=== PATIENT | male | born 1995 | race Caucasian/White ===

== ENCOUNTER → 2020-05-02 13:14 | Outpatient (BNVA) | payer OTHER, SELFPAY | PROVIDERS: Visit Provider Nurse Practitioner Family | DX: Z11.59 Encounter for screening for other viral diseases (principal) | CPT/HCPCS: 87635 ==

== ENCOUNTER 2021-11-08 01:45 | Emergency (ER) | payer BC, SELFPAY ==
[2021-11-08 02:09] VITALS: BP 118/61; PULSE 96; RESP 18; TEMP 36.7; O2SAT 99; BMI 23.6
--- NOTE | 2021-11-08 02:34 | W.ED.NAVMDI ---
HPI - Nausea/Vomiting/Diarrhea General: Chief complaint: Nausea/Vomiting/Diarrhea Stated complaint: N/V/D Time Seen by Provider: 11/08/21 01:47 History of Present Illness: Patient is a 25-year-old male comes to the ED with nausea vomiting diarrhea. Symptoms started around 3:00 today. He states that he has had multiple episodes of watery diarrhea this evening along with severe nausea. He vomited once earlier today and then just vomited here in the ED. He says after he vomits his nausea is good for a little bit but then it comes back. He has not been able to eat anything since his symptoms started. Endorses having some abdominal cramping pain especially when he is having episodes of diarrhea. Denies any localized abdominal pain. Denies any fever, chills, upper respiratory symptoms or bladder symptoms. Denies any food poisoning or recent sick contacts. Associated nausea: Yes Associated symtoms: Reports nausea; Denies change in vision, chest pain, dysuria, fatigue, headache(s) or palpitations Review of Systems Const: Denies: fever(s), chills or fatigue Eyes: Denies: change in vision or eye discomfort ENMT: Denies: throat pain, odynophagia, nasal discharge or nasal congestion Card: Denies: chest pain, palpitations, edema, swelling of feet/ankles, dyspnea on exertion or orthopnea Resp: Denies: dyspnea, productive cough or non-productive cough GI: Reports: nausea, vomiting, diarrhea and GI cramping; Denies: abdominal pain, constipation or hematochezia : Denies: flank pain, difficulty urinating, dysuria or hematuria Musc: Denies: neck pain, back pain or extremity swelling Skin/Breast: Denies: rash or new lesions Neuro: Denies: headache(s), numbness in extremities or weakness in extremities PFS ED PFSH: Medical History No pertinent past medical history Family History Grandmother Diabetes Denies family history of Clotting disorder Dementia Social History Smoking and tobacco status: never smoked Alcohol intake: never Physical Exam Const: COMMON NORMALS: patient oriented x3 and alert GENERAL APPEARANCE: cooperative and comfortable HENMT: COMMON NORMALS: normocephalic HEAD & SCALP: normocephalic MOUTH: Normal oral and palatal mucosa present THROAT: posterior oropharynx normal and uvula midline Neck/C-Spine: COMMON NORMALS: supple GENERAL: Yes normal visual inspection Resp: COMMON NORMALS: normal respiratory effort, No retractions, No use of accessory muscles and clear to auscultation bilaterally AUSCULTATION: clear to auscultation bilaterally Cardio: COMMON NORMALS: regular rate, regular rhythm, S1 normal heart sound present, S2 normal heart sound present, No gallops present (Cardio), No clicks present (Cardio), No murmurs present (Cardio) and Peripheral pulses 2+ throughout RATE: regular rate RHYTHM: regular rhythm HEART SOUNDS: S1 normal heart sound present and S2 normal heart sound present PERIPHERAL PULSES: Peripheral pulses 2+ throughout GI: COMMON NORMALS: Normal to inspection, nondistended, normoactive bowel sounds present, Soft to palpation, non-tender and no masses PALPATION: Yes Soft to palpation : COMMON NORMALS: Yes no CVA tenderness BLADDER/KIDNEY EXAM: Yes no CVA tenderness Back/Pelvis: COMMON NORMALS: no CVA tenderness Extremity: COMMON NORMALS: normal to inspection and no pedal edema Neuro: COMMON NORMALS: patient oriented x3 and moves all extremities SENSORIUM/ORIENTATION: Yes alert Skin: GENERAL SKIN EXAM: dry skin Course Vital Signs: Vital signs: Vital Signs Temperature 98.1 F 11/08/21 02:09 Pulse Rate 96 11/08/21 02:09 Respiratory Rate 18 11/08/21 02:09 Blood Pressure 118/61 11/08/21 02:09 Pulse Oximetry 99 11/08/21 02:09 MDM - Nausea/Vomiting/Diarrhea Medical Decision Making Patient is a 25-year-old male who comes to the ED with diarrhea, nausea and vomiting. Symptoms started this afternoon. Vitals are stable and patient is afebrile. Patient appears nontoxic and in no acute distress or pain. Rest of exam is benign. Labs are all unremarkable. Patient was given 1 L of IV fluids and some Zofran here in the ED. His nausea had improved and he had no episodes of emesis here in the ED. He was stable for discharge home. He likely has a viral syndrome that is causing GI symptoms. Patient was discharged home with a prescription for Zofran for nausea. He was told to follow-up with his PCP in the next week for reevaluation. He is told he needs to make sure he drinks plenty of fluids and stays hydrated. Patient understood and agreed with plan. Lab Data I reviewed the patient's lab results. : 11/08/21 02:20 11/08/21 02:20 Laboratory Results WBC 10.0 10^3/uL (4.0-10.0) 11/08/21 02:20 RBC 5.07 10^6/uL (4.1-5.3) 11/08/21 02:20 Hgb 15.5 g/dL (11.7-16.6) 11/08/21 02:20 Hct 44.8 % (42.0-52.0) 11/08/21 02:20 MCV 88.4 fl (80-94) 11/08/21 02:20 MCH 30.6 pg (28.0-34.0) 11/08/21 02:20 MCHC 34.6 g/dL (30.0-36.0) 11/08/21 02:20 RDW 12.1 % (12.1-15.1) 11/08/21 02:20 Plt Count 337 10^3/cmm (130-400) 11/08/21 02:20 MPV 9.1 fL (7.4-10.4) 11/08/21 02:20 Neut % (Auto) 90.1 % 11/08/21 02:20 Lymph % (Auto) 4.0 % 11/08/21 02:20 Haakon % (Auto) 5.4 % 11/08/21 02:20 Eos % (Auto) 0.1 % 11/08/21 02:20 Baso % (Auto) 0.2 % 11/08/21 02:20 Neut # (Auto) 9.04 10^3/uL (1.8-7.7) H 11/08/21 02:20 Lymph # (Auto) 0.4 10^3/uL (0.8-4.8) L 11/08/21 02:20 Haakon # (Auto) 0.5 10^3/uL (0.2-0.9) 11/08/21 02:20 Eos # (Auto) 0.0 10^3/uL (0.0-0.8) 11/08/21 02:20 Baso # (Auto) 0.0 10^3/uL (0.0-0.1) 11/08/21 02:20 Nucleated RBC % (auto) 0 % 11/08/21 02:20 Nucleated RBCs # 0.0 /100WBC 11/08/21 02:20 Sodium 139 mmol/L (136-145) 11/08/21 02:20 Potassium 4.1 mmol/L (3.5-5.1) 11/08/21 02:20 Chloride 101 mmol/L (98-107) 11/08/21 02:20 Carbon Dioxide 21 mmol/L (22-29) L 11/08/21 02:20 Anion Gap 21.1 (5-19) H 11/08/21 02:20 BUN 16 mg/dL (6-20) 11/08/21 02:20 Creatinine 0.9 mg/dL (0.7-1.2) 11/08/21 02:20 GFR Calculation 103.7 mL/min (90-130) 11/08/21 02:20 Glucose 156 mg/dL (65-115) H 11/08/21 02:20 Calculated Osmolality 292 mOsm/kg (285-295) 11/08/21 02:20 Calcium 10.2 mg/dL (8.5-10.5) 11/08/21 02:20 Total Bilirubin 0.5 mg/dL (0.15-1.2) 11/08/21 02:20 AST 16 U/L (0-40) 11/08/21 02:20 ALT 23 U/L (0-41) 11/08/21 02:20 Alkaline Phosphatase 80 IU/L (40-130) 11/08/21 02:20 Total Protein 8.4 g/dL (6.6-8.7) 11/08/21 02:20 Albumin 5.3 g/dL (3.5-5.2) H 11/08/21 02:20 Globulin 3.1 g/dL (1.3-4.6) 11/08/21 02:20 Lipase 14 U/L (13-60) 11/08/21 02:20 Discharge Plan Discharge Patient Disposition: Home Clinical Impression: Viral syndrome Condition: Stable Prescriptions: New ondansetron 4 mg tablet,disintegrating 4 mg PO Q8H PRN (Reason: nausea and vomiting) Qty: 15 0RF Discharge Orders: Discharge ED (Routine); Ordered 11/08/21 Ordered By: Lamberto Hardin Discharge Diet: Regular Discharge Activity: Increase activity as tolerated Patient Instructions: Viral Syndrome (ED) Activity Restrictions/Additional Instructions: Follow-up with medical provider as directed. Take medications as prescribed. Make sure you drink plenty fluids and stay hydrated. Return to the ER or your medical provider if condition worsens. Please read and understand discharge instructions. Thank you for choosing [facility] for your healthcare needs today. Please realize this is an emergency room and that we are providing you with a medical screening exam and this may not be complete and all inclusive of all the testing and or work up that you may need to determine your ailment or severity of your illness. It is very important that you follow up as instructed or that you return to the Emergency Department should you have concerns or if your condition changes or worsens in any way. Coding Level of Care Code ED Watch Dial Printer for Jn Fwd Exam Comprehensive
[2021-11-08 02:44] LABS: Basophils % 0.2 %; Eosinophils % 0.1 %; Hematocrit 44.8 % (42.0-52.0); Hemoglobin 15.5 g/dL (11.7-16.6); Lymphocytes # 0.4 10^3/uL (0.8-4.8); Mean Corpuscular HGB Conc 34.6 g/dL (30.0-36.0); Mean Corpuscular Hemoglobin 30.6 pg (28.0-34.0); Mean Corpuscular Volume 88.4 fl (80-94); Mean Platelet Volume 9.1 fL (7.4-10.4); Monocytes # 0.5 10^3/uL (0.2-0.9); Monocytes % 5.4 %; Neutrophils # 9.04 10^3/uL (1.8-7.7); Neutrophils % 90.1 %; Nucleated Red Blood Cells % 0 %; Platelet Count 337 10^3/cmm (130-400); Red Blood Count 5.07 10^6/uL (4.1-5.3); Red Cell Distribution Width 12.1 % (12.1-15.1)
[2021-11-08] MEDS: sodium chloride 0.9% 1,000 ML 999 ML IV (02:46)
[2021-11-08] MEDS: ondansetron 2 mg/ML SDV 2 mL 4 MG IVP (02:47)
[2021-11-08 03:01] LABS: Alanine Aminotransferase 23 U/L (0-41); Albumin Level 5.3 g/dL (3.5-5.2); Alkaline Phosphatase 80 IU/L (40-130); Anion Gap 21.1 (5-19); Aspartate Amino Transferase 16 U/L (0-40); Blood Urea Nitrogen 16 mg/dL (6-20); Calcium 10.2 mg/dL (8.5-10.5); Carbon Dioxide 21 mmol/L (22-29); Chloride 101 mmol/L (98-107); Globulin 3.1 g/dL (1.3-4.6); Glomerular Filtration Rate 103.7 mL/min (90-130); Glucose 156 mg/dL (65-115); Lipase 14 U/L (13-60); Osmolality Calculated 292 mOsm/kg (285-295); Potassium 4.1 mmol/L (3.5-5.1); Sodium 139 mmol/L (136-145); Total Bilirubin 0.5 mg/dL (0.15-1.2); Total Protein 8.4 g/dL (6.6-8.7)
[2021-11-08 03:47] VITALS: BP 125/68; PULSE 86; RESP 16; O2SAT 97
== END 2021-11-08 03:40 | disposition home or self-care (01) ==
PROVIDERS: Emergency Provider Physician Assistant
DX: B34.9 Viral infection, unspecified (principal)
CPT/HCPCS: 80053; 83690; 85025; 96361; 96374; 99284; J2405; J7030